=== PATIENT | female | born 1950 ===

== ENCOUNTER 2021-08-14 09:43 | Outpatient (CLI) | payer MEDICARE, OTHER ==
[2021-08-14 10:24] LABS: ALBUMIN 4.3 g/dL (3.2-5.5); ALBUMIN/GLOBULIN RATIO 1.3 (1.0-2.2); ALKALINE PHOSPHATASE 77 IU/L (42-121); ALT ALANINE AMINOTRANSFERASE 18 IU/L (10-60); AST ASPARTATE AMINOTRANSFERASE 19 IU/L (10-42); BILIRUBIN,TOTAL 0.8 mg/dL (0.2-1.0); BUN - BLOOD UREA NITROGEN 17 mg/dL (6-20); CALCIUM 9.6 mg/dL (8.5-10.3); CARBON DIOXIDE - CO2 28 mmol/L (21-32); CHLORIDE 99 mmol/L (101-111); CHOL/HDL RATIO 3.7 (<4.4); CHOLESTEROL 252 mg/dL; CREATININE 0.7 mg/dL (0.4-1.0); GFR - MDRD 83 (>89); GLUCOSE 107 mg/dL (70-100); HDL CHOLESTEROL 69 mg/dL; LDL CHOLESTEROL,CALCULATED 167 mg/dL; LDL/HDL RATIO 2.4 (<4.4); POTASSIUM 4.2 mmol/L (3.5-5.0); SODIUM 137 mmol/L (135-145); TOTAL PROTEIN 7.6 g/dL (6.7-8.2); TRIGLYCERIDES 80 mg/dL; VLDL CHOLESTEROL 16 mg/dL
--- NOTE | 2021-08-14 10:36 | DEXA Report ---
PROCEDURE: Dexa Spine and/or Hip INDICATIONS: POSTMENOPAUSAL TECHNIQUE: Dual energy x-ray absorptiometry (DXA) was performed on a [employer] System. Regions measur ed are the AP Spine, femoral neck, and if needed forearm. COMPARISON: None. FINDINGS: Lumbar Spine: Bone Mineral Density 0.949 g/cm/cm,T score -1.9, osteopenia Left total Hip: Bone Mineral Density 0.749 g/cm/cm,T score -2.1, osteopenia Left Femoral Neck: Bone Mineral Density 0.706 g/cm/cm, T score -2.4, osteopenia (T score greater or equal to -1.0: NORMAL) (T score from -1.1 to -2.4: OSTEOPENIA) (T score less than or equal to -2.5 to: OSTEOPOROSIS) Impression: Osteopenia Patients with diagnosis of osteoporosis or osteopenia should have regular bone mineral density assess ment. For those eligible for Medicare, routine testing is allowed once every 2 years. Testing frequ ency can be increased for patients who have rapidly progressing disease or for those who are receivin g medical therapy to restore bone mass. Reviewed by: Romulo Goncalves on 08/14/2021 10:35 AM PDT Approved by: Romulo Goncalves on 08/14/2021 10:35 AM PDT Station ID: [id number]
[2021-08-15 04:09] LABS: HCV AB <0.1 s/co ratio (0.0-0.9)
== END 2021-08-14 09:44 | disposition home or self-care (01) ==
LOC: DI 09:43
PROVIDERS: ATTEND Physician Assistant
DX: M85.89 Other specified disorders of bone density and structure, multiple sites (principal); Z11.59 Encounter for screening for other viral diseases; Z13.6 Encounter for screening for cardiovascular disorders; Z13.1 Encounter for screening for diabetes mellitus; Z78.0 Asymptomatic menopausal state
CPT/HCPCS: 36415; 80053; 80061; 83721; 86803

== ENCOUNTER 2021-09-09 12:59 | Outpatient (CLI) | payer MEDICARE, OTHER ==
--- NOTE | 2021-09-24 09:05 | Mammography Report ---
BILATERAL DIGITAL SCREENING MAMMOGRAM 3D/2D WITH EXAGGERATED CC: 09/09/2021 CLINICAL: Routine screening. Comparison is made to exams dated: 01/19/2017 mammogram, 12/11/2015 mammogram, 10/17/2013 mammogram, a nd 10/12/2012 mammogram - [facility]. The tissue of both breasts is heterogen eously dense. This may lower the sensitivity of mammography. No significant masses, calcifications, or other findings are seen in either breast. There has been no significant interval change. IMPRESSION: NEGATIVE There is no mammographic evidence of malignancy. A 1 year screening mammogram is recommended. Based on the Tyrer Cuzick model (a risk assessment model) the patients lifetime risk is 6.2% and her 10 year risk is 3.5%. According to the ACR, ACS, and NCCN guidelines, an annual breast MRI exam emmanuelle g with mammogram is recommended if the patients lifetime risk is 20% or greater. This exam was interpreted at Station ID: [id number]. NOTE: For mammograms, a report in lay terms will be sent to the patient. Approximately 15% of breast malignancies will not be visualized mammographically. In the management of a palpable breast mass, a negative mammogram must not discourage biopsy of a clinically suspicious lesion. Electronically Signed By: Nehal escamilla/jocelin:09/23/2021 08:12:25 ACR BI-RADS Category 1: Negative 3341F PARENCHYMAL PATTERN: (D) - The breast(s) demonstrate(s) heterogeneously dense fibroglandular parmarcia peralta. BI-RADS CATEGORY: (1) - 1 RECOMMENDATION: (ANNUAL) - Recommend routine annual screening mammography. [id number] 1 year screening LATERALITY: (B)
== END 2021-09-09 13:00 | disposition home or self-care (01) ==
LOC: DI.S 12:59
PROVIDERS: ATTEND Physician Assistant
DX: Z12.31 Encounter for screening mammogram for malignant neoplasm of breast (principal)

== ENCOUNTER 2021-10-09 08:30 | Outpatient (CLI) | payer MEDICARE, OTHER ==
[2021-10-09 08:59] LABS: ALBUMIN 4.3 g/dL (3.2-5.5); ALBUMIN/GLOBULIN RATIO 1.8 (1.0-2.2); ALKALINE PHOSPHATASE 63 IU/L (42-121); ALT ALANINE AMINOTRANSFERASE 19 IU/L (10-60); AST ASPARTATE AMINOTRANSFERASE 18 IU/L (10-42); BILIRUBIN,TOTAL 0.7 mg/dL (0.2-1.0); BUN - BLOOD UREA NITROGEN 15 mg/dL (6-20); CALCIUM 9.3 mg/dL (8.5-10.3); CARBON DIOXIDE - CO2 28 mmol/L (21-32); CHLORIDE 104 mmol/L (101-111); CHOL/HDL RATIO 2.5 (<4.4); CHOLESTEROL 174 mg/dL; CREATININE 0.7 mg/dL (0.4-1.0); GFR - MDRD 83 (>89); GLUCOSE 99 mg/dL (70-100); HDL CHOLESTEROL 70 mg/dL; LDL CHOLESTEROL,CALCULATED 92 mg/dL; LDL/HDL RATIO 1.3 (<4.4); SODIUM 139 mmol/L (135-145); TOTAL PROTEIN 6.7 g/dL (6.7-8.2); TRIGLYCERIDES 60 mg/dL; VLDL CHOLESTEROL 12 mg/dL
== END 2021-10-09 08:31 | disposition home or self-care (01) ==
LOC: LAB 08:30
PROVIDERS: ATTEND Physician Assistant
DX: E78.5 Hyperlipidemia, unspecified (principal)
CPT/HCPCS: 36415; 80053; 80061; 83721

== ENCOUNTER 2023-04-12 07:00 | Outpatient (CLI) | payer MEDICARE, OTHER ==
--- NOTE | 2023-04-12 13:40 | XRAY Report ---
PROCEDURE: Wrist 3+V LT INDICATIONS: SPRAIN OF LEFT WRIST TECHNIQUE: 3 views of the wrist were acquired. COMPARISON: None. FINDINGS: Bones: Mildly displaced, impacted comminuted fracture with intra-articular extension of the distal r adius. There is mild dorsal displacement of the distal fragment. Minimally displaced ulna styloid fra cture is also present. Prominent first CMC arthritic change Soft tissues: No suspicious soft tissue calcifications or masses. IMPRESSION: Comminuted, impacted and displaced intra-articular distal radial fracture. Minimally displaced ulna styloid fracture. Reviewed by: Cari Whiting MD on 04/12/2023 1:39 PM PST Approved by: Cari Whiting MD on 04/12/2023 1:39 PM PST Station ID: [id number]
== END 2023-04-12 23:59 | disposition home or self-care (01) ==
LOC: DI.S 07:00
PROVIDERS: ATTEND Physician Assistant Medical
DX: S63.592A Other specified sprain of left wrist, initial encounter (principal); S52.572A Other intraarticular fracture of lower end of left radius, initial encounter for closed fracture; S52.612A Displaced fracture of left ulna styloid process, initial encounter for closed fracture

== ENCOUNTER 2023-04-19 14:30 | Outpatient (CLI) | payer MEDICARE, OTHER ==
--- NOTE | 2023-04-19 17:37 | XRAY Report ---
PROCEDURE: Wrist 3 View LT INDICATIONS: LEFT WRIST FRACTURE TECHNIQUE: 4 views of the wrist were acquired. COMPARISON: X-ray dated 04/12/2023. FINDINGS: Bones: Impacted comminuted fractures of the distal radius is again identified with posterior angulat ion of the distal fracture fragment ;fracture of the ulnar styloid is again noted. 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 Soft tissues: Marked adjacent soft tissue swelling is present. IMPRESSION: Comminuted, impacted and displaced intra-articular distal radial fracture again seen with minimally d isplaced ulnar styloid fracture. Reviewed by: Cesar Byrnes MD on 04/19/2023 5:36 PM PST Approved by: Cesar Byrnes MD on 04/19/2023 5:36 PM PST Station ID: [id number]
== END 2023-04-19 23:59 | disposition home or self-care (01) ==
LOC: DI.WOS 14:30
PROVIDERS: ATTEND Orthopaedic Surgery
DX: S52.572D Other intraarticular fracture of lower end of left radius, subsequent encounter for closed fracture with routine healing (principal); S52.612D Displaced fracture of left ulna styloid process, subsequent encounter for closed fracture with routine healing

== ENCOUNTER 2023-05-03 08:00 | Outpatient (CLI) | payer MEDICARE, OTHER ==
--- NOTE | 2023-05-04 08:29 | XRAY Report ---
PROCEDURE: Wrist 3 View LT INDICATIONS: LEFT WRIST FRACTURE TECHNIQUE: 3 views of the wrist were acquired. COMPARISON: X-ray left wrist, 04/19/2023, 04/12/2023. FINDINGS: Bones: There is a comminuted intra-articular fracture of the distal radial metaphysis with mild impa ction and displacement. Increased bone resorption at the fracture line. Alignment is unchanged. No s uspicious bony lesions. Nondisplaced ulnar styloid fracture is noted. Osteopenia. Soft tissues: No suspicious soft tissue calcifications or masses. Soft tissue swelling. IMPRESSION: 1. Comminuted intra-articular distal radial metaphyseal fracture with mild impaction and displacement . Alignment is unchanged. There is increased bone resorption along the fracture line. 2. Nondisplaced ulnar styloid fracture. Reviewed by: Xochitl Pickens MD on 05/04/2023 8:27 AM PST Approved by: Xochitl Pickens MD on 05/04/2023 8:27 AM PST Station ID: [id number]
== END 2023-05-03 23:59 | disposition home or self-care (01) ==
LOC: DI.WOS 08:00
PROVIDERS: ATTEND Orthopaedic Surgery
DX: S52.572D Other intraarticular fracture of lower end of left radius, subsequent encounter for closed fracture with routine healing (principal); S52.615D Nondisplaced fracture of left ulna styloid process, subsequent encounter for closed fracture with routine healing

== ENCOUNTER 2023-05-24 07:41 | Outpatient (CLI) | payer MEDICARE, OTHER ==
--- NOTE | 2023-05-24 20:46 | XRAY Report ---
PROCEDURE: Wrist 3 View LT INDICATIONS: LEFT WRIST FRACTURE TECHNIQUE: 3 views of the wrist were acquired. COMPARISON: Left wrist radiograph on May 03, 2023. FINDINGS: Bones: Interval callus formation of comminuted, impacted fracture of the distal radius with intra-ar ticular extension and nondisplaced ulnar styloid fracture. Alignment is stable. There is slight widen ing of the scapholunate interval measuring 3 mm, similar to prior. There is slight ulnar positive donnie iance, similar to prior. No new fracture or dislocation. 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 Diffuse osseous demineralization. No suspicious bony lesions. Soft tissues: No suspicious soft tissue calcifications or masses. IMPRESSION: 1.Interval osseous healing of comminuted, impacted, intra-articular fracture of the distal radius and nondisplaced ulnar styloid fracture. 2.Stable alignment with slight widening of the scapholunate interval which may represent sequela of l igamentous injury and posttraumatic ulnar positive variance. Attention on follow-up. 3.Diffuse osseous demineralization. Reviewed by: Rich Saba MD on 05/24/2023 8:45 PM PST Approved by: Rich Saba MD on 05/24/2023 8:45 PM PST Station ID: [id number]
== END 2023-05-24 23:59 | disposition home or self-care (01) ==
LOC: DI.WOS 07:41
PROVIDERS: ATTEND Orthopaedic Surgery
DX: S52.615D Nondisplaced fracture of left ulna styloid process, subsequent encounter for closed fracture with routine healing (principal); S52.572D Other intraarticular fracture of lower end of left radius, subsequent encounter for closed fracture with routine healing

== ENCOUNTER 2023-09-01 13:43 | Outpatient (CLI) | payer MEDICARE, OTHER ==
--- NOTE | 2023-09-01 23:49 | DEXA Report ---
PROCEDURE: Dexa Spine and/or Hip INDICATIONS: OSTEOPENIA TECHNIQUE: Dual energy x-ray absorptiometry (DXA) was performed on a [employer] System. Regions measur ed are the AP Spine, femoral neck, and if needed forearm. COMPARISON: 08/14/2021 FINDINGS: Lumbar Spine: Bone Mineral Density: 0.959 g/cm/cm,T score: -1.8. Osteopenia, change from previous 1.1% Left Femoral Neck: Bone Mineral Density: 0.674 g/cm/cm, T score: -2.6, osteoporosis,. Left Hip: Bone Mineral Density: 0.700 g/cm/cm,T score: -2.4, osteopenia. Change from previous -6.5%, significan t (T score greater or equal to -1.0: NORMAL) (T score from -1.1 to -2.4: OSTEOPENIA) (T score less than or equal to -2.5 to: OSTEOPOROSIS) Impression: By WHO criteria, this patient has osteoporosis. No statistical interval change in bone mineral density of the lumbar spine. Interval statistical decr ease in bone mineral density of the hip. Patients with diagnosis of osteoporosis or osteopenia should have regular bone mineral density assess ment. For those eligible for Medicare, routine testing is allowed once every 2 years. Testing frequ ency can be increased for patients who have rapidly progressing disease or for those who are receivin g medical therapy to restore bone mass. Reviewed by: Nehal Kelly MD on 09/01/2023 11:47 PM PDT Approved by: Nehal Kelly MD on 09/01/2023 11:47 PM PDT Station ID: [id number]
== END 2023-09-01 13:44 | disposition home or self-care (01) ==
LOC: DI 13:43
PROVIDERS: ATTEND Registered Nurse
DX: M81.0 Age-related osteoporosis without current pathological fracture (principal)